=== PATIENT | male | born 1955 | race Caucasian/White ===

== ENCOUNTER 2019-11-17 19:45 | Emergency (ER) | payer MEDICARE, OTHER ==
[~2019-11-17] VITALS: Ht 175.3 cm; Wt 115.0 kg
[~2019-11-17 19:45] MED LIST: ALBU18HF INH; ASPI-515 PO; ATOR40TA78 PO; LISI-170 PO; METF500T27 PO; OMEP-110 PO
[2019-11-17] MEDS ORDERED: TAMS-11 PO (20:02)
--- NOTE | 2019-11-17 20:10 | NUR ---
THIS IS A 64 YO MALE COMING IN FOR HEADACHE X5 DAYS, COUGH X3 DAYS, SOB X1 DAY AND "BREATHING DIFFERENTLY". PATIENT WAS SEEN AT URGENT CARE TODAY, CXR AND EKG COMPLETED THERE, PATIENT STATES "THEY SAID MY EKG WAS DIFFERENT FROM THE LAST TIME". STATES LIGHTHEADEDNESS AT TIMES, DENIES N/V/D OR FEVERS AT HOME. 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 CALL LIGHT IN REACH.
[2019-11-17] MEDS ORDERED: ASPIRIN 81 MG TABLET CHEW ONE (20:15)
--- NOTE | 2019-11-17 20:19 | NUR ---
PATIENT MEDICATED PER [facility], TOLERATED WELL. ON [employer], THERE APPEARS TO BE PERIODS OF AFIB, WILL CONTINUE TO MONITOR. ER PA NOTIFIED.
[2019-11-17] MEDS ORDERED: ASPIRIN 81 MG TABLET CHEW PO ONE (20:30)
[2019-11-17] MEDS ORDERED: SODIUM CHLORIDE FLUSH 10ML SYR IVF ONE (20:30)
[2019-11-17 20:33] LABS: BASOPHILS # (AUTO) 0.02 x10^3/uL (0-0.1); BASOPHILS % (AUTO) 0 % (0-1); EOSINOPHILS # (AUTO) 0.09 x10^3/uL (0-0.4); EOSINOPHILS % (AUTO) 2 % (1-7); LYMPHOCYTES % (AUTO) 27 % (22-44); MD NO; MEAN CORPUSCULAR HEMOGLOBIN 30.1 pg (27.5-34.5); MEAN CORPUSCULAR HGB CONC 33.7 g/dL (33.2-36.2); MEAN CORPUSCULAR VOLUME 89.2 fL (81-97); MEAN PLATELET VOLUME 8.8 fL (7.4-10.4); MONOCYTES # (AUTO) 0.42 x10^3/uL (0.2-0.8); MONOCYTES % (AUTO) 8 % (2-9); NEUTROPHILS # (AUTO) 3.53 x10^3/uL (1.8-6.8); NEUTROPHILS % (AUTO) 64 % (42-75); PLATELET COUNT 133 x10^3/uL (130-400); RED BLOOD COUNT 4.49 x10^6/uL (4.38-5.82); RED CELL DISTRIBUTION WIDTH 15.7 % (9.4-14.8)
[2019-11-17 20:42] VITALS: BP 167/80
[2019-11-17 20:45] LABS: ALANINE AMINOTRANSFERASE 83 U/L (12-78); ALBUMIN 3.5 g/dL (3.4-5.0); ANION GAP 7 mmol/L (5-15); CALCIUM 8.6 mg/dL (8.5-10.1); CHLORIDE 102 mmol/L (98-107); CREATININE 1.12 mg/dL (0.7-1.3)
[2019-11-17 20:49] LABS: ALKALINE PHOSPHATASE 65 U/L (45-117); BILIRUBIN,TOTAL 0.4 mg/dL (0.2-1.0); TOTAL PROTEIN 6.7 g/dL (6.4-8.2); TROPONIN I < 0.015 ng/mL (0.000-0.045)
--- NOTE | 2019-11-17 21:09 | NUR ---
Patient given discharge instructions and they have confirmed that they understand the instructions. Patient ambulatory with steady gait.
== END 2019-11-17 21:14 ==
LOC: ED 20:10
DX: R06.00 Dyspnea, unspecified (principal); R05 Cough; I45.10 Unspecified right bundle-branch block; I11.9 Hypertensive heart disease without heart failure; E11.9 Type 2 diabetes mellitus without complications; J45.909 Unspecified asthma, uncomplicated; E78.00 Pure hypercholesterolemia, unspecified; Z90.49 Acquired absence of other specified parts of digestive tract
CPT/HCPCS: 36415; 71045; 80053; 83880; 84484; 85025; 93005; 99283